=== PATIENT | male | born 1965 | race Caucasian/White ===

== ENCOUNTER 2017-01-11 11:39 | Emergency (ER) | payer BC ==
[~2017-01-11] VITALS: Ht 177.8 cm; Wt 111.1 kg
[~2017-01-11 11:39] MED LIST: VICODIN 500 MG-1 TAB PO
[2017-01-11] MEDS ORDERED: ZITHROMAX250 MG PO (13:05)
[2017-01-11] MEDS ORDERED: PROAIR HFA8.5 GM INH (13:05)
[2017-01-11] MEDS ORDERED: HYCODAN/HYDROMET5 ML PO (13:05)
[2017-01-11] MEDS ORDERED: TESSALON PERLE100 M1 PO (13:05)
== END 2017-01-11 13:45 | disposition home or self-care (01) ==
LOC: ED 11:39
DX: J40 Bronchitis, not specified as acute or chronic (principal); I10 Essential (primary) hypertension

== ENCOUNTER 2018-04-12 18:08 | Emergency (ER) | payer BC ==
[~2018-04-12 18:08] MED LIST changes: +HYCODAN/HYDROMET5 ML PO; +PROAIR HFA8.5 GM INH; +TESSALON PERLE100 M1 PO; +ZITHROMAX250 MG PO
[2018-04-12] MEDS ORDERED: KEFLEX500 M1 PO (18:18)
[2018-04-12] MEDS ORDERED: SEPTDS PO (18:18)
== END 2018-04-12 18:30 | disposition home or self-care (01) ==
LOC: ED 18:08
DX: L02.611 Cutaneous abscess of right foot (principal); R03.0 Elevated blood-pressure reading, without diagnosis of hypertension; Z79.2 Long term (current) use of antibiotics; Z79.899 Other long term (current) drug therapy

== ENCOUNTER 2018-04-14 17:54 | Inpatient (IN) | payer BC ==
[~2018-04-14] VITALS: Ht 177.8 cm; Wt 114.5 kg
--- NOTE | ~2018-04-14 | PR ---
[place], [place] PROGRESS NOTE NAME: [id number] UNIT #: [id number] ROOM: 531 DOCTOR: JUAN LANG DPM BIRTHDATE: [birth year] DOS: 04/17/2018 SUBJECTIVE: The patient was seen for followup of cellulitis of the right foot with ulceration to the lateral aspect. OBJECTIVE FINDINGS: There is decreased cellulitis to the right foot compared to previous exam on . Ulceration is granular. No signs of fluctuance or abscess. ASSESSMENT: Ulceration of lateral right foot, diabetes, cellulitis. PLAN: Evaluation and management. Continue local wound care and antibiotics and we will round with the patient. JUAN LANG DPM CM:[id number] JUAN LANG DPM 04/17/18 1225 interface
[~2018-04-14 17:54] MED LIST changes: +KEFLEX500 M1 PO; +SEPTDS PO
[2018-04-14 18:57] LABS: BASO # 0.1 10*3/uL (0.0-0.1); BASO % 0.5 % (0.0-1.0); EOS # 0.2 10*3/uL (0.0-0.4); EOS % 1.8 % (1.0-4.0); HEMATOCRIT 46.7 % (42.0-52.0); HEMOGLOBIN 15.4 g/dl (14.0-18.0); LYMPH # 0.8 10*3/uL (1.3-4.4); LYMPH % 8.1 % (27.0-41.0); MEAN CELL VOLUME 96.5 fl (80.0-94.0); MEAN CORPUSCULAR HGB 31.8 pg (27.0-31.0); MONO # 0.9 10*3/uL (0.1-1.0); MONO % 9.1 % (3.0-9.0); NEUT # 7.7 10*3/uL (2.3-7.9); NEUT % 80.1 % (47.0-73.0); PLATELET COUNT AUTOMATED 140 10*3/uL (130-400); RED BLOOD COUNT 4.84 10*6/uL (4.50-5.90); RED CELL DISTRI WIDTH 12.3 % (0-14.5); WHITE BLOOD COUNT 9.6 10*3/uL (4.8-10.8)
[2018-04-14 19:06] LABS: ACT PARTIAL THROMBO TIME 27.5 SECONDS (20.8-31.5)
[2018-04-14 19:11] LABS: ALBUMIN 3.9 gm/dl (3.1-4.5); ALKALINE PHOSPHATASE 48 U/L (45-117); BUN 18 mg/dl (7-24); CHLORIDE 98 mmol/L (98-107); CREATININE 0.99 mg/dL (0.70-1.30); POTASSIUM 3.6 mmol/L (3.5-5.1); SGOT/AST 23 IU/L (3-35); SGPT/ALT 33 U/L (12-78); SODIUM 135 mmol/L (136-145); TOTAL PROTEIN 8.8 gm/dL (6.4-8.2)
[2018-04-14 20:30] VITALS: BP 124/89
[2018-04-14] MEDS ORDERED: ZESTORETIC 20-1 EACH PO (22:57)
[2018-04-14] MEDS ORDERED: CARDIZEM CD180 MG PO (22:58)
[2018-04-14] MEDS ORDERED: ZYLOPRIM300 MG PO (23:01)
[2018-04-15] VITALS: BP 118/67
[2018-04-15 06:35] LABS: BASO % 0.6 % (0.0-1.0); EOS # 0.3 10*3/uL (0.0-0.4); EOS % 4.7 % (1.0-4.0); HEMOGLOBIN 14.4 g/dl (14.0-18.0); LYMPH # 0.8 10*3/uL (1.3-4.4); LYMPH % 12.8 % (27.0-41.0); MEAN CELL VOLUME 98.7 fl (80.0-94.0); MEAN CORPUSCULAR HGB 32.3 pg (27.0-31.0); MEAN CORPUSCULAR HGB CONC 32.7 g/dl (33.0-37.0); MEAN PLATELET VOLUME 10.5 fl (9.6-12.3); MONO # 0.9 10*3/uL (0.1-1.0); MONO % 13.9 % (3.0-9.0); NEUT # 4.2 10*3/uL (2.3-7.9); NEUT % 67.8 % (47.0-73.0); PLATELET COUNT AUTOMATED 127 10*3/uL (130-400); RED BLOOD COUNT 4.46 10*6/uL (4.50-5.90); RED CELL DISTRI WIDTH 12.4 % (0-14.5); WHITE BLOOD COUNT 6.2 10*3/uL (4.8-10.8)
[2018-04-15 06:56] LABS: ALBUMIN 3.2 gm/dl (3.1-4.5); ALKALINE PHOSPHATASE 41 U/L (45-117); BUN 13 mg/dl (7-24); CHLORIDE 101 mmol/L (98-107); CHOLESTEROL 159 mg/dL (<200); CREATININE 0.81 mg/dL (0.70-1.30); HDL CHOLESTEROL 51 mg/dl (40-60); LDL CHOLESTEROL 81 mg/dL (9-159); POTASSIUM 3.6 mmol/L (3.5-5.1); SGOT/AST 26 IU/L (3-35); SGPT/ALT 27 U/L (12-78); SODIUM 137 mmol/L (136-145); TOTAL PROTEIN 7.4 gm/dL (6.4-8.2); TRIGLYCERIDES 137 mg/dl (<150); VLDL CHOLESTEROL 27 mg/dL (6-40)
[2018-04-15 07:02] LABS: FREE T4 1.09 ng/dl (0.76-1.46)
[2018-04-15 08:00] VITALS: BP 126/74
[2018-04-15 12:00] VITALS: BP 132/81
[2018-04-15 16:00] VITALS: BP 128/58
[2018-04-15 20:00] VITALS: BP 122/78
[2018-04-16] VITALS: BP 133/78
[2018-04-16 07:51] LABS: BUN 11 mg/dl (7-24); CHLORIDE 100 mmol/L (98-107); CREATININE 0.83 mg/dL (0.70-1.30); POTASSIUM 4.3 mmol/L (3.5-5.1); SODIUM 136 mmol/L (136-145)
[2018-04-16 07:53] LABS: BASO # 0.1 10*3/uL (0.0-0.1); BASO % 1.3 % (0.0-1.0); EOS # 0.4 10*3/uL (0.0-0.4); EOS % 7.5 % (1.0-4.0); HEMATOCRIT 44.2 % (42.0-52.0); HEMOGLOBIN 14.6 g/dl (14.0-18.0); LYMPH # 0.6 10*3/uL (1.3-4.4); LYMPH % 12.7 % (27.0-41.0); MEAN CELL VOLUME 98.7 fl (80.0-94.0); MEAN CORPUSCULAR HGB 32.6 pg (27.0-31.0); MEAN PLATELET VOLUME 10.2 fl (9.6-12.3); MONO # 0.7 10*3/uL (0.1-1.0); MONO % 14.6 % (3.0-9.0); NEUT # 3.1 10*3/uL (2.3-7.9); NEUT % 63.5 % (47.0-73.0); PLATELET COUNT AUTOMATED 145 10*3/uL (130-400); RED BLOOD COUNT 4.48 10*6/uL (4.50-5.90); RED CELL DISTRI WIDTH 12.2 % (0-14.5); WHITE BLOOD COUNT 4.8 10*3/uL (4.8-10.8)
[2018-04-16 08:00] VITALS: BP 126/78
[2018-04-16 16:00] VITALS: BP 119/78
[2018-04-16 20:00] VITALS: BP 125/77
[2018-04-17] VITALS: BP 128/80
[2018-04-17 06:54] LABS: BASO # 0.1 10*3/uL (0.0-0.1); BASO % 0.9 % (0.0-1.0); EOS # 0.4 10*3/uL (0.0-0.4); EOS % 6.6 % (1.0-4.0); HEMATOCRIT 46.5 % (42.0-52.0); HEMOGLOBIN 15.1 g/dl (14.0-18.0); LYMPH % 18.4 % (27.0-41.0); MEAN CELL VOLUME 97.5 fl (80.0-94.0); MEAN CORPUSCULAR HGB 31.7 pg (27.0-31.0); MEAN CORPUSCULAR HGB CONC 32.5 g/dl (33.0-37.0); MEAN PLATELET VOLUME 9.8 fl (9.6-12.3); MONO # 0.8 10*3/uL (0.1-1.0); NEUT # 3.1 10*3/uL (2.3-7.9); NEUT % 58.5 % (47.0-73.0); PLATELET COUNT AUTOMATED 175 10*3/uL (130-400); RED BLOOD COUNT 4.77 10*6/uL (4.50-5.90); RED CELL DISTRI WIDTH 12.1 % (0-14.5); WHITE BLOOD COUNT 5.3 10*3/uL (4.8-10.8)
[2018-04-17 07:13] LABS: BUN 12 mg/dl (7-24); CHLORIDE 99 mmol/L (98-107); CREATININE 0.86 mg/dL (0.70-1.30); POTASSIUM 3.9 mmol/L (3.5-5.1); SODIUM 135 mmol/L (136-145)
[2018-04-17 08:00] VITALS: BP 135/86
[2018-04-17] MEDS ORDERED: VITAMIN D32000 UNI1 PO (12:50)
[2018-04-17] MEDS ORDERED: DOXYCYCLINE100 M3 PO (12:50)
[2018-04-17] MEDS ORDERED: NORCO 5-325 TA1 EACH PO (12:50)
== END 2018-04-17 15:00 | disposition home or self-care (01) | DRG 638 ==
LOC: ED 17:54 → 5E 19:21 → EDHOLD 19:21 → 5E 20:04
PROVIDERS: Family Medicine; Internal Medicine; Nurse Practitioner Family; ADMIT Internal Medicine
DX: E11.621 Type 2 diabetes mellitus with foot ulcer (principal); L97.411 Non-pressure chronic ulcer of right heel and midfoot limited to breakdown of skin; L02.611 Cutaneous abscess of right foot; L03.115 Cellulitis of right lower limb; R17 Unspecified jaundice; D72.810 Lymphocytopenia; L20.9 Atopic dermatitis, unspecified; E11.65 Type 2 diabetes mellitus with hyperglycemia; I10 Essential (primary) hypertension; M10.9 Gout, unspecified; E03.9 Hypothyroidism, unspecified; M65.9 Synovitis and tenosynovitis, unspecified; M67.471 Ganglion, right ankle and foot; Z82.49 Family history of ischemic heart disease and other diseases of the circulatory system; Z83.3 Family history of diabetes mellitus; Z79.899 Other long term (current) drug therapy

== ENCOUNTER → 2018-04-29 | Outpatient (CLI) | payer BC ==
[~2018-04-29] MED LIST changes: +CARDIZEM CD180 MG PO; +DOXYCYCLINE100 M3 PO; +NORCO 5-325 TA1 EACH PO; +VITAMIN D32000 UNI1 PO; +ZESTORETIC 20-1 EACH PO; +ZYLOPRIM300 MG PO
== END | disposition home or self-care (01) ==
LOC: WOUNDCARE 10:15
DX: E11.621 Type 2 diabetes mellitus with foot ulcer (principal); L97.511 Non-pressure chronic ulcer of other part of right foot limited to breakdown of skin; E11.51 Type 2 diabetes mellitus with diabetic peripheral angiopathy without gangrene; E11.65 Type 2 diabetes mellitus with hyperglycemia; E03.9 Hypothyroidism, unspecified; M10.9 Gout, unspecified; I10 Essential (primary) hypertension

== ENCOUNTER → 2018-05-03 | Outpatient (CLI) | payer BC | END | disposition home or self-care (01) | LOC: WOUNDCARE 01:03 | DX: E11.621 Type 2 diabetes mellitus with foot ulcer (principal); L97.511 Non-pressure chronic ulcer of other part of right foot limited to breakdown of skin; E11.51 Type 2 diabetes mellitus with diabetic peripheral angiopathy without gangrene; E11.65 Type 2 diabetes mellitus with hyperglycemia; E03.9 Hypothyroidism, unspecified; I10 Essential (primary) hypertension; M10.9 Gout, unspecified ==

== ENCOUNTER → 2018-05-24 | Outpatient (CLI) | payer BC | END | disposition home or self-care (01) | LOC: WOUNDCARE 01:55 | DX: E11.621 Type 2 diabetes mellitus with foot ulcer (principal); L97.511 Non-pressure chronic ulcer of other part of right foot limited to breakdown of skin; E11.51 Type 2 diabetes mellitus with diabetic peripheral angiopathy without gangrene; E11.65 Type 2 diabetes mellitus with hyperglycemia; E03.9 Hypothyroidism, unspecified; M10.9 Gout, unspecified; I10 Essential (primary) hypertension ==

== ENCOUNTER → 2018-06-07 | Outpatient (CLI) | payer BC | END | disposition home or self-care (01) | LOC: WOUNDCARE 04:07 | DX: E11.621 Type 2 diabetes mellitus with foot ulcer (principal); L97.512 Non-pressure chronic ulcer of other part of right foot with fat layer exposed; E11.51 Type 2 diabetes mellitus with diabetic peripheral angiopathy without gangrene; E11.65 Type 2 diabetes mellitus with hyperglycemia; I10 Essential (primary) hypertension; E03.9 Hypothyroidism, unspecified; M10.9 Gout, unspecified ==

== ENCOUNTER → 2018-06-28 | Outpatient (CLI) | payer BC | END | disposition home or self-care (01) | LOC: WOUNDCARE 01:26 | DX: E11.621 Type 2 diabetes mellitus with foot ulcer (principal); L97.512 Non-pressure chronic ulcer of other part of right foot with fat layer exposed; E11.65 Type 2 diabetes mellitus with hyperglycemia; E11.51 Type 2 diabetes mellitus with diabetic peripheral angiopathy without gangrene; E03.9 Hypothyroidism, unspecified; I10 Essential (primary) hypertension; M10.9 Gout, unspecified ==

== ENCOUNTER 2018-08-17 16:42 | Emergency (ER) | payer BC ==
[~2018-08-17] VITALS: Ht 177.8 cm; Wt 111.1 kg
== END 2018-08-17 18:18 | disposition home or self-care (01) ==
LOC: ED 16:42
DX: H92.02 Otalgia, left ear (principal); Z79.899 Other long term (current) drug therapy

== ENCOUNTER 2018-12-20 07:59 | Emergency (ER) | payer BC ==
[~2018-12-20] VITALS: Ht 175.2 cm; Wt 111.1 kg
[2018-12-20] MEDS ORDERED: CEPHALEXIN500 M1 PO (10:58)
== END 2018-12-20 11:15 | disposition home or self-care (01) ==
LOC: ED 07:59
DX: S01.312A Laceration without foreign body of left ear, initial encounter (principal); I10 Essential (primary) hypertension; E03.9 Hypothyroidism, unspecified; E11.621 Type 2 diabetes mellitus with foot ulcer; Z79.899 Other long term (current) drug therapy; W22.09XA Striking against other stationary object, initial encounter; Y93.89 Activity, other specified; Y92.098 Other place in other non-institutional residence as the place of occurrence of the external cause; Y99.8 Other external cause status

== ENCOUNTER 2019-03-14 05:49 | Emergency (ER) | payer BC ==
[~2019-03-14] VITALS: Ht 177.8 cm; Wt 105.7 kg
[~2019-03-14 05:49] MED LIST changes: +CEPHALEXIN500 M1 PO
== END 2019-03-14 06:52 | disposition home or self-care (01) ==
LOC: ED 05:49
DX: J20.9 Acute bronchitis, unspecified (principal); E11.9 Type 2 diabetes mellitus without complications; I10 Essential (primary) hypertension; E03.9 Hypothyroidism, unspecified; M10.9 Gout, unspecified; R22.2 Localized swelling, mass and lump, trunk; Z79.899 Other long term (current) drug therapy

== ENCOUNTER 2019-07-09 18:07 | Emergency (ER) | payer BC ==
[~2019-07-09] VITALS: Ht 177.8 cm; Wt 108.9 kg
[2019-07-09 18:42] LABS: BASO # 0.1 10*3/uL (0.0-0.1); BASO % 1.2 % (0.0-1.0); EOS % 0.9 % (1.0-4.0); HEMATOCRIT 45.1 % (42.0-52.0); LYMPH # 1.1 10*3/uL (1.3-4.4); LYMPH % 24.9 % (27.0-41.0); MEAN CELL VOLUME 94.9 fl (80.0-94.0); MEAN CORPUSCULAR HGB 33.7 pg (27.0-31.0); MEAN CORPUSCULAR HGB CONC 35.5 g/dl (33.0-37.0); MEAN PLATELET VOLUME 9.6 fl (9.6-12.3); MONO # 0.6 10*3/uL (0.1-1.0); MONO % 14.7 % (3.0-9.0); NEUT # 2.5 10*3/uL (2.3-7.9); NEUT % 58.1 % (47.0-73.0); PLATELET COUNT AUTOMATED 185 10*3/uL (130-400); RED BLOOD COUNT 4.75 10*6/uL (4.50-5.90); RED CELL DISTRI WIDTH 12.7 % (0-14.5); WHITE BLOOD COUNT 4.3 10*3/uL (4.8-10.8)
[2019-07-09 18:57] LABS: ALBUMIN 3.6 gm/dl (3.1-4.5); ALKALINE PHOSPHATASE 39 U/L (45-117); BUN 18 mg/dl (7-24); CHLORIDE 98 mmol/L (98-107); CREATININE 1.06 mg/dL (0.70-1.30); LIPASE 175 U/L (73-393); POTASSIUM 3.9 mmol/L (3.5-5.1); SGOT/AST 100 IU/L (3-35); SGPT/ALT 71 U/L (12-78); SODIUM 133 mmol/L (136-145); TOTAL PROTEIN 7.9 gm/dL (6.4-8.2)
[2019-07-09 19:45] LABS: TROPONIN I < 0.015 ng/ml (<0.045)
[2019-07-09 22:41] LABS: BILIRUBIN NEGATIVE (NEGATIVE); BLOOD NEGATIVE (NEGATIVE); CLARITY CLEAR (CLEAR); COLOR YELLOW (YELLOW); GLUCOSE NEGATIVE (NEGATIVE); KETONE NEGATIVE (NEGATIVE); LEUKO ESTERASE TRACE (NEGATIVE); NITRITE NEGATIVE (NEGATIVE); UROBILINOGEN 0.2 E.U./dl (0.2-1.0)
[2019-07-09] MEDS ORDERED: PEPCID20 MG PO (23:56)
[2019-07-09] MEDS ORDERED: ZOFRAN4 MG PO (23:56)
== END 2019-07-10 00:54 | disposition home or self-care (01) ==
LOC: ED 18:07
PROVIDERS: Emergency Medicine; Emergency Medicine Emergency Medical Services
DX: K52.9 Noninfective gastroenteritis and colitis, unspecified (principal); Z79.899 Other long term (current) drug therapy

== ENCOUNTER 2020-12-07 17:00 | Emergency (ER) | payer BC ==
[~2020-12-07] VITALS: Ht 177.8 cm; Wt 111.1 kg
[~2020-12-07 17:00] MED LIST changes: +PEPCID20 MG PO; +ZOFRAN4 MG PO
[2020-12-07] MEDS ORDERED: METHOCARBAMOL500 M1 PO (23:05)
[2020-12-07] MEDS ORDERED: PREDNISONE20 M1 PO (23:05)
== END 2020-12-07 23:20 | disposition home or self-care (01) ==
LOC: ED 17:00
DX: M54.41 Lumbago with sciatica, right side (principal)

== ENCOUNTER 2022-05-01 23:48 | Emergency (ER) | payer BC ==
[~2022-05-01] VITALS: Ht 177.8 cm; Wt 99.3 kg
[~2022-05-01 23:48] MED LIST changes: +METHOCARBAMOL500 M1 PO; +PREDNISONE20 M1 PO
== END 2022-05-02 01:11 | disposition home or self-care (01) ==
LOC: ED 23:48
DX: S51.811A Laceration without foreign body of right forearm, initial encounter (principal); Z88.6 Allergy status to analgesic agent; Z79.899 Other long term (current) drug therapy; W22.8XXA Striking against or struck by other objects, initial encounter; Y93.89 Activity, other specified; Y92.89 Other specified places as the place of occurrence of the external cause; Y99.8 Other external cause status

== ENCOUNTER → 2025-01-23 | Emergency (ER) | payer BC ==
[~2025-01-23] VITALS: Ht 180.3 cm; Wt 95.3 kg
[~2025-01-23] MED LIST changes: +NITROGLYCERIN 0.4 MG BOT SL PRN; +NITROGLYCERIN 13.8 GM CANS SL SCH
[2025-01-23 10:46] LABS: BASO # 0.1 10*3/uL (0.0-0.1); BASO % 1.0 % (0.0-1.0); EOS # 0.1 10*3/uL (0.0-0.4); EOS % 1.6 % (1.0-4.0); MEAN CELL VOLUME 97.1 fl (80.0-94.0); MEAN CORPUSCULAR HGB 32.8 pg (27.0-31.0); MEAN PLATELET VOLUME 9.2 fl (9.6-12.3); MONO # 0.5 10*3/uL (0.1-1.0); MONO % 9.9 % (3.0-9.0); NEUT # 3.5 10*3/uL (2.3-7.9); NEUT % 67.4 % (47.0-73.0); NUCLEATED RED BLOOD CELL 0.0 % (0.0-0.0); NUCLEATED RED BLOOD CELL 0.0 10*3/uL (0.0-0.0); PLATELET COUNT AUTOMATED 172 10*3/uL (130-400); RED CELL DISTRI WIDTH 12.1 % (0-14.5)
[2025-01-23 11:00] LABS: ACT PARTIAL THROMBO TIME 26.6 SECONDS (20.0-32.1)
[2025-01-23 11:25] LABS: BUN 20 mg/dl (9-23); SGPT/ALT 29 U/L (5-49)
== END ==
LOC: ED 10:26
PROVIDERS: Emergency Medicine
DX: R07.89 Other chest pain (principal); I20.0 Unstable angina; I10 Essential (primary) hypertension; M10.9 Gout, unspecified; E11.9 Type 2 diabetes mellitus without complications; Z98.890 Other specified postprocedural states; Z88.5 Allergy status to narcotic agent; Z88.6 Allergy status to analgesic agent

== ENCOUNTER 2025-01-29 15:04 | Emergency (ER) | payer BC ==
[~2025-01-29] VITALS: Ht 177.8 cm; Wt 99.8 kg
[~2025-01-29 15:04] MED LIST changes: -NITROGLYCERIN 0.4 MG BOT SL PRN; -NITROGLYCERIN 13.8 GM CANS SL SCH
[2025-01-29] MEDS ORDERED: Glucagon Hydrochloride 1 MG SYR IV ONE (15:10)
[2025-01-29] MEDS ORDERED: SODIUM CHLORIDE 0.9% 1,000 ML IV ONE (15:10)
[2025-01-29] MEDS ORDERED: Ondansetron Hydrochloride 4 MG/2 ML VIAL IV ONE (15:10)
[2025-01-29] MEDS ORDERED: PROTONIX40 MG PO (17:10)
== END 2025-01-29 17:20 | disposition home or self-care (01) ==
LOC: ED 15:04
DX: T18.128A Food in esophagus causing other injury, initial encounter (principal); Z79.899 Other long term (current) drug therapy; Z88.5 Allergy status to narcotic agent; Z88.6 Allergy status to analgesic agent; W44.F3XA Food entering into or through a natural orifice, initial encounter; Y93.89 Activity, other specified; Y92.89 Other specified places as the place of occurrence of the external cause; Y99.8 Other external cause status